=== PATIENT | female | born 1995 | race African-American/Black ===

== ENCOUNTER 2022-10-19 15:13 | Emergency (ER) | payer OTHER, SELFPAY | END 2022-10-19 16:50 | disposition home or self-care (01) | LOC: EEVIPCON 15:13 → CSHERS 15:13 | DX: S80.02XA Contusion of left knee, initial encounter (principal); F17.210 Nicotine dependence, cigarettes, uncomplicated; V89.2XXA Person injured in unspecified motor-vehicle accident, traffic, initial encounter ==